=== PATIENT | female | born 1985 | race African-American/Black ===

== ENCOUNTER 2020-08-23 08:44 | Emergency (ER) | payer OTHER ==
[~2020-08-23] VITALS: Ht 149.9 cm; Wt 68.0 kg
[2020-08-23] MEDS ORDERED: PROAIR HFA8.5 GM INH (08:57)
[2020-08-23 09:18] LABS: ABSOLUTE BASOPHILS 0.1 thou/uL (0.0-0.2); ABSOLUTE LYMPHOCYTES 2.8 thou/uL (0.8-5.3); ABSOLUTE MONOCYTES 0.4 thou/uL (0.0-1.2); ABSOLUTE NEUTROPHILS 5.4 thou/uL (1.6-8.1); BASOPHILS 0.8 %; EOSINOPHILS 0.3 %; HEMATOCRIT 40.6 % (37.0-47.0); HEMOGLOBIN 13.5 gm/dL (12.0-15.0); LYMPHOCYTES 32.4 %; MCH 28.6 pg (26.0-34.0); MCHC 33.2 g/dL (28.0-37.0); MCV 86.2 fL (80.0-100.0); MONOCYTES 4.1 %; MPV 8.3 fl. (7.2-11.1); NUCLEATED RBCS 0 /100WBC; PLATELET COUNT* 377 thou/uL (150-400); POLYS 62.4 %; RBC 4.71 mil/uL (4.20-5.00); RDW-CV 13.6 % (10.5-14.5); WBC 8.6 thou/uL (4.0-11.0)
[2020-08-23 09:25] LABS: CALCIUM 8.7 mg/dL (8.5-10.1); CREATININE 0.9 mg/dL (0.6-1.3); POTASSIUM 3.8 mmol/L (3.5-5.1)
[2020-08-23 09:29] LABS: ALBUMIN 4.1 g/dL (3.4-5.0); TOTAL BILIRUBIN 0.3 mg/dL (<0.1-1.0); TOTAL PROTEIN 8.5 g/dL (6.4-8.2)
[2020-08-23] MEDS ORDERED: ZOFRAN ODT4 MG DISSOLVE (09:52)
[2020-08-23 10:00] VITALS: BP 109/65
--- NOTE | 2020-08-24 11:29 | EKG ---
[place] [address] ELECTROCARDIOGRAM REPORT Name: YUAN JIMENEZ Room: [facility]#: [id number] Admission: 08/23/20 Attend Phys: Discharge: 08/23/20 Date of : 85 Date of Service: 08/23/20907 Report #: [id number] THIS REPORT FOR: //name// [facility] ED Test Date: 2020-08-23 Test Time: 09:08:29 Pat Name: YUAN JIMENEZ Department: Room: Gender: F Ssrs Developer: RANDY : 1985 Requested By: Yuan Padgett Order Number: [id number] MD: Jeff Pereira Measurements Intervals [place] Rate: 75 P: 45 AR: 152 QRS: 24 QRSD: 93 T: 27 QT: 388 QTc: 434 Interpretive Statements Sinus rhythm ST elev, probable normal early repol pattern Electronically Signed On 08-24-2020 11:29:13 CDT by Jeff Pereira [email or web address] <ELECTRONICALLY SIGNED> By: Jeff Pereira MD, [facility] 08/24/20 1129 7 7 Jeff Pereira MD, FACC /EPI
--- NOTE | 2020-08-24 11:29 | EKG ---
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
== END 2020-08-23 10:00 | disposition home or self-care (01) ==
LOC: M.ERS 08:44
PROVIDERS: Emergency Medicine Emergency Medical Services
DX: K52.9 Noninfective gastroenteritis and colitis, unspecified (principal); J45.909 Unspecified asthma, uncomplicated